=== PATIENT | female | born 1950 | race Caucasian/White ===

== ENCOUNTER 2021-06-02 17:33 | Emergency (ER) | payer OTHER ==
[~2021-06-02 17:33] MED LIST: ASPIRIN EC81 MG PO; MOBIC7.5 MG PO; VITAMIN D50000 UNIT PO
[2021-06-02] MEDS ORDERED: CYCLOBENZAPRINE10 MG PO (21:26)
[2021-06-02] MEDS ORDERED: ETODOLAC300 MG PO (21:26)
== END 2021-06-02 21:44 | disposition home or self-care (01) ==
LOC: FER 17:33
DX: S01.01XA Laceration without foreign body of scalp, initial encounter (principal); S76.311A Strain of muscle, fascia and tendon of the posterior muscle group at thigh level, right thigh, initial encounter; I10 Essential (primary) hypertension; E11.9 Type 2 diabetes mellitus without complications; J44.9 Chronic obstructive pulmonary disease, unspecified; F17.210 Nicotine dependence, cigarettes, uncomplicated; Z79.82 Long term (current) use of aspirin; Z79.899 Other long term (current) drug therapy; W01.10XA Fall on same level from slipping, tripping and stumbling with subsequent striking against unspecified object, initial encounter; Y92.89 Other specified places as the place of occurrence of the external cause; Y99.0 Civilian activity done for income or pay